=== PATIENT | male | born 1995 | race Caucasian/White ===

== ENCOUNTER 2018-06-22 14:39 | Emergency (ER) | payer BC ==
--- NOTE | 2018-06-22 15:36 | EDPHY ---
H & P Stated Complaint: Fall? Time Seen by Provider: 06/22/18 15:29 - Personal History Current Tetanus/Diphtheria Vaccine: Yes - Medical/Surgical History Hx Asthma: No Hx Chronic Respiratory Disease: No Hx Diabetes: No Hx Cardiac Disease: No Hx Renal Disease: No Hx Cirrhosis: No Hx Alcoholism: No Other PMH: Denies. - Social History Smoking Status: Current some day smoker Constitutional: Initial Vital Signs Temperature (C) 36.6 C 06/22/18 14:41 Heart Rate 83 06/22/18 14:41 Respiratory Rate 18 06/22/18 14:41 Blood Pressure 142/93 H 06/22/18 14:41 O2 Sat (%) 95 06/22/18 14:41 O2 Delivery Mode Room Air Allergies/Adverse Reactions: No Known Allergies Allergy (Unverified 06/22/18 14:47) Home Medications: Medication Instructions Recorded NK [No Known Home Meds] 06/19/15 Medical Decision Making - Diagnostics Imaging Results: Imaging Impressions Head CT 06/22/18 15:32 Impression: 2.2 cm area of heterogeneous increased attenuation in the posterior right parietal lobe more suggestive of calcification than hemorrhage. This could be secondary to associated mass or old trauma or postinfectious etiology. Recommend MRI without and with contrast for further evaluation. Results called and discussed with Micah Lemus MD, on 06/22/2018, 16:07. Brain MRI 06/22/18 16:03 Impression: 1. The gyral calcifications seen along the posterior right parietal/occipital junction do not have any associated T2 signal abnormality, restricted diffusion , enhancement, or unusual flow voids, and likely represent old posttraumatic or postinflammatory sequelae. Given the lack of any preceding studies, repeat MR imaging in 3-6 months is recommended to assure stability. 2. Mild chronic maxillary and ethmoid mucosal thickening, with no evidence of an acute sinusitis. Findings and recommendations were discussed with Micah Lemus MD at 18:26, on 06/22/2018. Imaging: Discussed imaging studies w/ outbound call center representative Radiologist ED Course/Re-evaluation: CHIEF COMPLAINT: Head injury HISTORY OF PRESENT ILLNESS: 22-year-old male who spent the weekend in [place]. He endorses the fact that he uses significant amount of alcohol and drugs and does not really remember much of the weekend. He believes and has some corroboration from his friends that he fell down and hit his head sometime mid day on Tuesday. He feels a large lump on the right side of his head above his ear. He states the lump is throbbing and getting worse. He also states that he has no idea what he fell on her when it happened her feet lost consciousness. He has also been significantly nauseated. He endorses the fact he has had several other concussions from sports. REVIEW OF SYSTEMS: A comprehensive 10 system review of systems is otherwise negative aside from elements mentioned in the history of present illness and medical decision making. PHYSICAL EXAM: HR, BP, O2 Sat, RR. Temp noted General Appearance: Alert, well hydrated, appropriate, and non-toxic appearing. Head: Scalp tenderness along the right parietal occipital area. No laceration or abrasion. Eyes: Pupils equal, round, reactive to light and accommodation, EOMI, no trauma , no injection. Ears: Clear bilaterally, no perforation, normal landmarks Nose: Atraumatic, no rhinorrhea, clear. Throat: There is no erythema or exudates, no lesions, normal tonsils, mucus membranes moist. Neck: Supple, 2+ carotid upstroke, nontender, no lymphadenopathy. Respiratory: No retractions, no distress, no wheezes, and no accessory muscle use. Lungs are clear to auscultation bilaterally. Cardiovascular: Regular rate and rhythm, no murmurs, rubs, or gallops. Bilateral carotid, radial, dorsalis pedis, and posterior tibial pulses intact. Good capillary refill all extremities. Gastrointestinal: Abdomen is soft, nontender, non-distended, no masses, no rebound, no guarding, no peritoneal signs. Musculoskeletal: Normal active ROM of all extremities, atraumatic. Neurological: Alert, appropriate, and interactive. The patient has normal DTRs and non-focal cranial nerves, motor, sensory, and cerebellar exam. Skin: No rashes, good turgor, no nodules on palpation. Past medical history: Prior concussions Past surgical history: Denies Family history: Noncontributory Social history: Single, student, does not use tobacco, binge drinks and uses drugs on occasion. DIAGNOSTICS/PROCEDURES/CRITICAL CARE TIME: Study: CT of the brain without contrast Indication: Traumatic injury Results: CT scan of the brain was obtained. The results of the study are 2.2 cm area suggestive of calcification vs hemorrhage. The study was read by the radiologist, Dr. Nicholson. I viewed the images myself on the PACS system. DIFFERENTIAL DIAGNOSIS: The differential diagnosis for the patient's trauma included but was not limited to intracranial injury, long bone and pelvic bone fractures, spinal injury, intra-abdominal injury, and intra-thoracic injury. MEDICAL DECISION MAKING: This patient is a couple of days out from hitting his head in [place] however he has no idea what happened to him, complete amnesia to the injury, worsening right-sided headache and throbbing, nausea, and simultaneous use of drugs and alcohol during the injury. CT of the head is pending. 16:[address] Nicholson, radiologist. CT shows some calcifications in the frontal lobe. Plan for MRI for further evaluation. 18:[address] Garcia, radiologist. Dr. Nolan has also read this study and concurs. MRI brain shows calcifications which are likely represent old posttraumatic or postinflammatory sequelae. Recommend follow up MRI in 6 months. Reassessed patient. Discussed imaging results. The patient is relieved regarding his MRI result. He understands it is safest to have a followup MRI in 6 months. Plan to discharge home in good condition. Concussion precautions discussed, referral to concussion specialist given. Return precautions discussed. He is comfortable with this plan. - Data Points Medications Given: Discontinued Medications Lorazepam (Ativan Injection) 1 mg IVP EDNOW ONE Stop: 06/22/18 16:53 Last Admin: 06/22/18 16:56 Dose: 1 mg Departure - Departure Disposition: Home, Routine, Self-Care Clinical Impression: Head injury Qualifiers: Encounter type: initial encounter Qualified Code(s): S09.90XA - Unspecified injury of head, initial encounter Concussion Qualifiers: Encounter type: initial encounter Loss of consciousness presence/duration: with LOC of unspecified duration Qualified Code(s): S06.0X9A - Concussion with loss of consciousness of unspecified duration, initial encounter Condition: Good Instructions: Concussion (ED), Head Injury (ED) Additional Instructions: 1. Follow-up with your primary care doctor this week. We have referred you to a concussion specialist, please follow up with her as well for continued management of your symptoms. 2. Brain rest - try to avoid TV, video games, cell phones, or reading while symptoms persist. You may reintroduce activities as tolerated. 3. Physical rest - avoid activities that could result in further head injury or that require prolonged attention until your symptoms completely resolve. 4. You may take Tylenol or Ibuprofen as directed below as needed for pain. 5. Return to the Emergency Department for severe headache, vomiting, vision changes, confusion, fever or other concerns. 6. It is recommended that you obtain a follow up MRI study in six months for repeat evaluation of your abnormal findings. These are likely the result of remote prior head injuries, but it is safest to have a repeat study as we discussed. Adult Pain & Fever Control: We recommend Acetaminophen (Tylenol) and Ibuprofen (Motrin,Advil) for pain and fever control. When fever is high or pain severe, both drugs can be used at the same time, but at different intervals. Please note the time differences. Your dose is: Acetaminophen 650mg every 4 to 6 hours Ibuprofen 600mg every 6-8 hours with food Note: do not take Acetaminophen with Hydrocodone (Vicodin, Lortab) or Oxycodone (Percocet). These medications also contain Acetaminophen. No more than 3000mg of Acetaminophen should be taken in 24 hours (for an adult). Referrals: Lissa Narayan [place] [place] - As per Instructions Linsey Reaves MD [Medical Doctor] - As per Instructions Stand Alone Forms: School Excuse Report Scribed for: Micah Lemus Report Scribed by: Alanis Colon Date of Report: 06/22/18 Time of Report: 18:40
--- NOTE | 2018-06-22 15:57 | ASMTCAGE ---
CAGE Do you feel you ought to Answers: No cut down on your drinking or drug use? Do people annoy you by Answers: No criticizing your drinking or drug use? Do you feel guilty about Answers: No your drinking or drug use? Do you drink or use drugs Answers: No first thing in the morning (Eye Case Planner)? Additional Comments Pt refused resources. Reports daily marijuana use quantity one joint each evening. Denies other drug use. ETOH use varies "depending on the kind of week". Last week reports 10 + beers and 8 + cocktails. Each cocktail is 4 - 5 ounces hard liquor. Date Signed: 06/22/2018 03:56 PM Electronically Signed By:Sherita Lozano RN
[2018-06-22] MEDS ORDERED: LORazepam 2 MG/ML INJ IVP ONE (16:52)
[2018-06-22] MEDS ORDERED: LORazepam 2 MG/ML INJ ONE (16:53)
[2018-06-22 17:26] VITALS: BP 136/97
[2018-06-22] MEDS ORDERED: GADOBUTROL 10 ML VIAL IVP ONE (17:39)
== END 2018-06-22 18:43 | disposition home or self-care (01) ==
DX: S06.0X9A Concussion with loss of consciousness of unspecified duration, initial encounter (principal); W19.XXXA Unspecified fall, initial encounter
CPT/HCPCS: 96374; A9585; J2060